=== PATIENT | male | born 1960 | race Caucasian/White ===

== ENCOUNTER 2024-10-01 09:55 | Outpatient (CLI) | payer OTHER, SELFPAY ==
--- NOTE | 2024-10-01 09:58 | CT_ITS ---
WS: [id number] LDCT LUNG CANCER SCREENING HISTORY: NICOTINE DEPENDENCE, CIGARETTES TECHNIQUE: Axial imaging performed from the apices to 1 cm below the costophrenic angles. Coronal and sagittal reformats are submitted with axial MIP series. All CT scans at [facility] use at least one of these dose optimization techniques: automated exposure control; mA and/or kV adjustment per patient size (includes targeted exams where dose is matched to clinical indication); or iterativ e reconstruction. DLP: 72.47 mGy.cm DIvol: Mean CTDIvol: 1.40 (mGy) COMPARISON: None available. Diagnostic quality: Satisfactory Lungs: Mild pulmonary hyperexpansion. No pulmonary nodule or mass. No endobronchial lesions. Heart: Normal size heart with no pericardial effusion.. Other findings: Mild atherosclerosis aorta. Normal size pulmonary artery. Prior CABG. Extensive coron abraham artery calcifications. Prior aortic valve replacement. No adrenal mass. Dense calcification in th e splenic artery. CT/CT lung screening [id number] IMPRESSION: LUNG-RADS: 1-Negative FOLLOW UP: 12 Month: Continue annual screening with LDCT OTHER FINDINGS (S MODIFIER): None.
== END 2024-10-01 09:56 | disposition home or self-care (01) ==
LOC: RAD 09:56
PROVIDERS: PCP Family Medicine; Visit Provider Family Medicine
DX: Z12.2 Encounter for screening for malignant neoplasm of respiratory organs (principal); F17.210 Nicotine dependence, cigarettes, uncomplicated; R91.8 Other nonspecific abnormal finding of lung field; I70.0 Atherosclerosis of aorta; Z98.890 Other specified postprocedural states; I25.10 Atherosclerotic heart disease of native coronary artery without angina pectoris; I70.8 Atherosclerosis of other arteries
CPT/HCPCS: 71271

== ENCOUNTER 2024-11-23 17:21 | Outpatient (CLI) | payer MEDICARE, MEDICAID, SELFPAY ==
--- NOTE | 2024-11-23 17:41 | USR_ITS ---
PROCEDURE INFORMATION: Exam: US Duplex Bilateral Extracranial Arteries; Complete; Carotid Arteries Exam date and time: 11/23/2024 5:48 PM Age: 64 years old Clinical indication: Screening exam; Additional info: Stenosis TECHNIQUE: Imaging protocol: Real-time duplex ultrasound scan of the bilateral extracranial arteries combining mac scale, color Doppler and spectral waveform analysis with image documentation. Complete exam. Exam focused on the carotid arteries. COMPARISON: CT lung screening [id number] 10/01/2024 9:58 AM FINDINGS: Right common carotid artery: No occlusion or stenosis. Waveforms are normal. Right internal carotid artery: No occlusion or stenosis. Waveforms are normal. Right ICA/CCA ratio: Within normal limits. Right external carotid artery: No stenosis in the origin. Right vertebral artery: Unremarkable. Antegrade flow. Left common carotid artery: No occlusion or stenosis. Waveforms are normal. Left internal carotid artery: No occlusion or stenosis. Waveforms are normal. Left ICA/CCA ratio: Within normal limits. Left external carotid artery: No stenosis in the origin. Left vertebral artery: Unremarkable. Antegrade flow. Other findings: Scattered mild atherosclerotic plaque throughout the carotid arterial system. US/CV carotid duplex BI* [id number] IMPRESSION: 1. Negative for significant stenosis of the internal carotid arteries by peak systolic velocity criteria. 2. Scattered mild atherosclerotic plaque throughout the carotid arterial system. REFERENCES: SRU CRITERIA. The degree of internal carotid artery stenosis is based on criteria defined by the Society of Radiologists in Ultrasound (SRU). Normal is no stenosis. Mild is less than 50% stenosis. Moderate is 50-69% stenosis. Severe is greater than 69% stenosis to near occlusion. Near occlusion is a markedly narrowed lumen. Total occlusion is no detectable patent lumen.
== END 2024-11-23 17:22 | disposition home or self-care (01) ==
LOC: RAD 17:26
PROVIDERS: PCP Family Medicine; Visit Provider Family Medicine
DX: I65.23 Occlusion and stenosis of bilateral carotid arteries (principal)
CPT/HCPCS: 93880

== ENCOUNTER → 2024-11-25 14:09 | Outpatient (BNVA) | payer MEDICARE, MEDICAID, SELFPAY | PROVIDERS: PCP Family Medicine; Visit Provider Internal Medicine | DX: R07.9 Chest pain, unspecified (principal); I25.10 Atherosclerotic heart disease of native coronary artery without angina pectoris; Z95.2 Presence of prosthetic heart valve | CPT/HCPCS: 93005; 99204 ==

== ENCOUNTER 2024-12-04 13:36 | Outpatient (CLI) | payer MEDICARE, MEDICAID, SELFPAY ==
--- NOTE | 2024-12-04 13:30 | USR_ITS ---
PROCEDURE INFORMATION: Exam: US Duplex Bilateral Lower Extremity Arteries Exam date and time: 12/04/2024 2:24 PM Age: 64 years old Clinical indication: Pain; Leg, lower; Bilateral; Additional info: Leg pain TECHNIQUE: Imaging protocol: Real-time ultrasound scan of the arteries of the bilateral lower extremities with 2-D mac scale, color Doppler flow and spectral waveform analysis. Images documented and saved. COMPARISON: No relevant prior studies available. FINDINGS: There are monophasic waveforms with loss of the normal early diastolic flow reversal throughout both lower extremities. Right common femoral artery: No occlusion or significant stenosis. Normal waveform. Right superficial femoral artery: No occlusion or significant stenosis. Normal waveform. Right popliteal artery: No occlusion or significant stenosis. Normal waveform. Right calf/foot arteries: No occlusion or significant stenosis in the visualized arteries. Normal waveforms. Dorsalis pedis artery is patent. Left common femoral artery: No occlusion or significant stenosis. Normal waveform. Left superficial femoral artery: No occlusion or significant stenosis. Normal waveform. Left popliteal artery: No occlusion or significant stenosis. Normal waveform. Left calf/foot arteries: No occlusion or significant stenosis in the visualized arteries. Normal waveforms. Dorsalis pedis artery is patent. Right FLORY 0.63 Left FLORY 0.66 US/[place] [id number] IMPRESSION: No stenosis or occlusion. Monophasic waveforms in both legs.
== END 2024-12-04 13:37 | disposition home or self-care (01) ==
PROVIDERS: PCP Family Medicine; Visit Provider Internal Medicine
DX: M79.604 Pain in right leg (principal); M79.605 Pain in left leg
CPT/HCPCS: 93925

== ENCOUNTER 2024-12-29 11:44 | Outpatient (CLI) | payer MEDICARE, MEDICAID, SELFPAY ==
--- NOTE | 2024-12-29 12:00 | USCV_ITS ---
Edvin Hernandez Age: 64 Gender: M : 1960 Exam Date: 12/29/2024 11:55 Ordering Phys: Arnaldo Locke M.D ([email or web address]) Technologist: [place] [facility] [place]: ao mechanical pros BP: / HR: 73 Rhythm: Sinus Technical Quality: Adequate MEASUREMENTS (Male / Female) Normal Values 2D ECHO LV Diastolic Diameter PLAX 3.4 cm 4.2 - 5.9 / 3.9 - 5.3 cm IVS Diastolic Thickness 1.9 cm 0.6 - 1.0 / 0.6 - 0.9 cm IVS Systolic Thickness 2.4 cm LVPW Diastolic Thickness 1.7 cm 0.6 - 1.0 / 0.6 - 0.9 cm LVPW Systolic Thickness 1.8 cm LVOT Diameter 2.1 cm LV Ejection Fraction 2D Teich 60.2 % LV Ejection Fraction MOD 4C 66.9 % LV Ejection Fraction MOD 2C 63.8 % LV Ejection Fraction 2C AL 63.8 % LA Diameter 4.2 cm RA Systolic Volume 4C AL 53.3 ml RA Systolic Volume 4C MOD 52.2 ml Aorta at Sinotubular Diameter 3.0 cm M-MODE LA Ao Ratio MM 1.2 AV Cusp Separation MM 2.0 cm DOPPLER AV Peak Velocity 197.0 cm/s LVOT Peak Velocity 88.0 cm/s AV Area Cont Eq vti 1.8 cm squared AV Area Cont Eq pk 1.6 cm squared MV Peak Velocity 140.0 cm/s MV Area PHT 2.4 cm squared Mitral E to A Ratio 0.9 TV Peak Velocity 224.5 cm/s TR Peak Velocity 241.0 cm/s TR Peak Gradient 23.2 mmHg TV Peak E Velocity 97.0 cm/s PV Peak Velocity 111.0 cm/s FINDINGS Left Ventricle Left ventricle is normal in size. LV systolic function is normal with EF of 60-65%. No regional wall motion abnormalities. Grade 1 diastolic dysfunction Right Ventricle Normal in size and function Right Atrium Normal in size Left Atrium Normal in size Mitral Valve Mild mitral annular calcification. Mild mitral regurgitation. Aortic Valve Mechanical aortic valve. No significant stenosis. Trace aortic regurgitation. Tricuspid Valve Mild tricuspid regurgitation. Insufficient TR jet to calculate RVSP Pulmonic Valve Not well visualized Pericardium Normal Aorta Normal in size IVC Appears to be normal CONCLUSIONS LV systolic function is normal with EF of 60-65% Grade 1 diastolic dysfunction Mild mitral regurgitation Mechanical aortic valve. Trace aortic regurgitation. Mild tricuspid regurgitation No comparison studies are available. Arnaldo Locke MD (Electronically Signed) Final Date: 06 Jan 2025 10:03 S
== END 2024-12-29 11:45 | disposition home or self-care (01) ==
PROVIDERS: PCP Family Medicine; Visit Provider Internal Medicine
DX: R07.9 Chest pain, unspecified (principal); R06.02 Shortness of breath; R93.1 Abnormal findings on diagnostic imaging of heart and coronary circulation; I34.81 Nonrheumatic mitral (valve) annulus calcification; I34.0 Nonrheumatic mitral (valve) insufficiency; Z96.89 Presence of other specified functional implants; I07.1 Rheumatic tricuspid insufficiency
CPT/HCPCS: 93306

== ENCOUNTER 2025-01-20 10:18 | Outpatient (CLI) | payer MEDICARE, MEDICAID, SELFPAY ==
--- NOTE | 2025-01-20 10:00 | CTR_ITS ---
PROCEDURE INFORMATION: Exam: CTA Abdominal Aorta and Bilateral Lower Extremities (Run-off) With Contrast Exam date and time: 01/20/2025 11:10 AM Age: 64 years old Clinical indication: Pain; Other: Lower legs; Prior surgery; Surgery date: 6+ months; Surgery type: Back; Pvd, chronic bilateral leg cramping TECHNIQUE: Imaging protocol: Computed tomographic angiography of the of the abdominal aorta, pelvis and bilateral lower extremities with contrast. 3D rendering (Not supervised by radiologist): MIP and/or 3D reconstructed images were created by the technologist. Radiation optimization: All CT scans at this facility use at least one of these dose optimization techniques: automated exposure control; mA and/or kV adjustment per patient size (includes targeted exams where dose is matched to clinical indication); or iterative reconstruction. Contrast material: OMNIPAQUE 350; Contrast volume: 125 ml; Contrast route: INTRAVENOUS (IV); COMPARISON: CT lung screening [id number] 10/01/2024 9:58 AM RADIATION DOSE METRICS: Total DLP (mGy-cm): 1414.24 FINDINGS: FINDINGS: Aorta: Heavily calcified aorta particularly in the infrarenal aspect. No narrowing. Celiac trunk and mesenteric arteries: Calcification at the origin of the celiac trunk and superior mesenteric arteries. No narrowing. Visceral branches of the celiac trunk normal. Renal arteries: Calcification at the origin of the left renal artery. No narrowing. Calcification at the origin and proximal aspect of the right renal artery. Narrowing proximally of significance likely 60-70%. Inferior mesenteric artery is patent. Right iliac arteries: Dense calcification common iliac artery with neck out narrowing. Atheromatous disease within the proper external iliac artery including a significant narrowing of approximately 80-90% proximally. Right femoral/popliteal arteries: Common femoral artery is heavily calcified and occluded. Distal external iliac artery likely occluded. Profundal artery is patent. Distal superficial femoral artery is reconstituted and heavily calcified. Popliteal artery is calcified and patent. No narrowing. Right infrapopliteal arteries: Calcification within the tibioperoneal trunk and the origin of the infra genicular vessels. Three vessels are patent to the ankle with flow within the dorsalis pedis artery and plantar branches. Left iliac arteries: Dense calcification within the common iliac artery as well as the external iliac artery. No hemodynamically significant narrowing. Left femoral/popliteal arteries: Dense calcification of the common femoral artery. Superficial femoral artery is occluded. Abundant flow within the profundus. Reconstitution of the calcified distal superficial femoral artery. Popliteal artery is calcified and narrowed proximally in excess of 50%. The more distal aspect of the popliteal artery calcification without narrowing. Left infrapopliteal arteries: Calcification within the tibioperoneal trunk and proximal infra genicular vessels. Three-vessel runoff to the ankle with flow within the anterior tibial artery and dorsalis pedis artery as well as the posterior tibial artery in the plantar branches. Liver: Fatty infiltration Gallbladder and biliary ducts: Unremarkable Pancreas: Unremarkable Spleen: Unremarkable Adrenal glands: Unremarkable Kidneys and ureters: Mild scarring lower pole left kidney otherwise unremarkable. Stomach and bowel: Fluid-filled stomach. Diverticulosis. Severe. No acute process. Question mildly thickened small bowel loops in the left mid and upper abdomen. Numerous small nonspecific lymph nodes in the mesentery. Possible enteritis. Appendix: Normal Urinary bladder: Poorly distended. Mass at the base of the bladder possibly prostatic. Bladder mass not excluded. Reproductive: Prominent enlarged prostate gland. BPH versus prostatic mass. Correlate. Intraperitoneal space: No free fluid within the peritoneum. Lymph nodes: Numerous lymph nodes in the mesentery. Possible enteritis. Bones/joints: Surgical plate and pedicle screws L4 and L5.Degenerative changes within the sacroiliac joints. No osteolytic process. No evidence of osteomyelitis. Soft tissues: Small periumbilical ventral hernia. No appreciable edema. No air in the soft tissues. CT/CT angio abd aorta runof [id number] Impression: In brief, occlusion of the superficial femoral arteries bilaterally with reconstitution of the popliteal arteries and three-vessel runoff to the foot bilaterally. See above for detail. Severe narrowing of the right external iliac artery likely 80-90%. See image number 246 series 5. Occlusion of the distal aspect of the right iliac artery and the right common femoral artery. Significant narrowing of the proximal aspect of the right renal artery. Narrowing of the proximal popliteal artery on the left in excess of 50%. Numerous small lymph nodes in the mesentery. Possible enteritis. Enlarged prostate. Mass base of the bladder. See above. No evidence of osteomyelitis
[2025-01-20 11:06] LABS: Blood Urea Nitrogen 17 mg/dL (8-23); Glomerular Filtration Rate 60.8 mL/min (90-130)
[2025-01-20] MEDS: iohexol 350 mg/mL 500 mL Btl (per mL) IV (11:23)
== END 2025-01-20 10:19 | disposition home or self-care (01) ==
PROVIDERS: PCP Family Medicine; Visit Provider Internal Medicine
DX: I70.202 Unspecified atherosclerosis of native arteries of extremities, left leg (principal); I70.291 Other atherosclerosis of native arteries of extremities, right leg; R93.89 Abnormal findings on diagnostic imaging of other specified body structures; I70.8 Atherosclerosis of other arteries; I77.1 Stricture of artery; R59.0 Localized enlarged lymph nodes; N40.0 Benign prostatic hyperplasia without lower urinary tract symptoms; N32.89 Other specified disorders of bladder; K55.1 Chronic vascular disorders of intestine; I70.1 Atherosclerosis of renal artery; K76.0 Fatty (change of) liver, not elsewhere classified; N28.89 Other specified disorders of kidney and ureter; K57.30 Diverticulosis of large intestine without perforation or abscess without bleeding; Z98.890 Other specified postprocedural states; M46.1 Sacroiliitis, not elsewhere classified; K43.9 Ventral hernia without obstruction or gangrene
CPT/HCPCS: 75635; 82565; 84520

== ENCOUNTER 2025-02-10 07:25 | Outpatient (CLI) | payer MEDICARE, MEDICAID, SELFPAY ==
[2025-02-10] VITALS (7 sets, daily range): BP systolic 106–140; BP diastolic 60–82; PULSE 41–58; RESP 14–20; TEMP 36.2–36.5; O2SAT 92–98; BMI 28.1
--- NOTE | 2025-02-10 07:30 | XACV_ITS ---
Wt: 72 kg BSA: 1.81 m2 Any Known Allergies: Other Gender: Male : 1960 Exam Type: Invasive Peripheral Vascular Procedure(s): Procedure Description: Diagnostic procedure Procedure Description: Peripheral Cath Diagnostic Procedure Procedure Description: Abdominal aortic angiography Procedure Description: Lower extremities' angiography Exam Priority: Routine Abdominal Diagnostic Findings Distal abdominal aorta is patent. Lower Extremity Diagnostic Findings INDICATION: 64-year-old man with past medical history of coronary artery disease status post CABG, mechanical aortic valve who has been having severe lifestyle limiting claudication of bilateral lower extremities. Has been on cilostazol with no significant improvement in symptoms. CTA demonstrates severe bilateral PAD. Plan for peripheral angiogram with possible intervention. Right lower extremity findings: Right common iliac artery is patent. Right internal iliac artery is patent. Right external iliac artery is totally occluded in distal segment. Right common femoral artery is totally occluded. Reconstitution of profunda artery via collaterals. Right SFA is reconstituted in mid to distal vessel via collaterals. Right popliteal artery is patent. Below the knee patient has good three-vessel runoff to foot.. Left lower extremity findings: Left common iliac artery is patent. Left internal iliac artery is patent. Left external iliac artery is patent. Left common femoral artery has mild to moderate disease. Left profunda artery is patent. Left SFA is totally occluded at the ostium and reconstituted in mid to distal vessel. Left popliteal artery is patent. Below the knee patient has 2-3 vessel runoff.. Conclusions Severe bilateral peripheral artery disease including totally occluded right external iliac and common femoral artery. We will refer patient to vascular surgery revascularization attempt. Recommendations Aggressive risk factor modification. Referral to vascular surgery team. Hemodynamic Data Phase:Rest AO : 99.0 / 52.0 ( 72.0 ) @ 9:55:00 AM Access Site Site: Left Femoral artery Sheath Size: 6 Fr Hemost... Method: Mynx Hemost... Success: Successful Procedure Details Findings Procedure Consent Obtained. Admit Source: Out Patient. Pre-Procedure Time Out. Identified patient by full name and date of as verbalized by the patient/guarantor. Does the consent match the physician's order: Yes. Accurate & Complete Informed Consent: Yes. Inpatient/Outpatient History & Physical on Chart: Yes. If H&P is completed, is and addenduem needed: No; If yes, is the addendum complete: N/A. Visualize and Verify Site with Patient/Guarantor: N/A. Relevant Radiology Images available: N/A. The risks, benefits, and alternatives of sedation and/or procedure were discussed by physician. The patient agrees to continue. Procedure started. Current diagnosis: Severe Claudication. IV Site on Arrival: 20 gauge in the right anticubital. IV Fluids: 0.9% NaCl at KVO. 0 mL infused prior to research laboratory specialist. Pre Procedural Pulses: bilateral posterior tibial was Doppled. Pre Procedural Pulses: bilateral dorsalis pedis was Doppled. Pre Procedural Pulses: bilateral radial was 1+. Oxygen started at 3liters/min via nasal canula. bilateral groins was prepped with chloroprep then draped in the usual sterile fashion. Physician notified. Baseline sample Acquired. HR: 52 BPM. Family updated by MD prior to the start of the procedure. Physician arrived. Physician scrubbed in. Immediate Pre-Procedure Time Out. Correct Patient: Yes; Correct Procedure: Yes; Correct Site: Yes; Correct Patient Position: Yes; Correct Supplies: Yes; Dried Flammable Prep: Yes; Blood Products Available: N/A;. Lidocaine 1% infiltrated to the left groin. Arterial access obtained. A 5FrFr UF catheter in over wire. Abdominal aortogram performed in AP @ 10 mL/sec for a total of 30 mL. Glidewire inserted. UF catheter advanced over the glide into the right Common Iliac artery then glidewire removed. Right common iliac selected and arteriogram performed at 10 ml/sec for a total of 20 ml. Glidewire inserted. UF catheter removed. Rim inserted over the glidewire. RIM catheter out. UF reinserted. Glidewire out. Pigtail postioned above the bifurcation of the iliacs. Digital Subtraction Aortagram performed @ 10 mL/sec for a total of 20 mL. Right tibial peroneal trunk selected and Digital Subtraction arteriogram performed @ 10 mL/sec for a total of 30 mL. UF catheter removed over the wire. Left common femoral selected and arteriogram with runoff performed @ 10 mL/sec for a total of 30 mL. Physician review of films. Arterial sheath flushed and connected to tranducer and pressure bag with heparinized saline. Post Procedure: Pulses reassessed and unchanged. PERRLA. Strong, equal hand systems design engineer bilaterally. No VTE prophylaxis required. Medication's Wasted: Lidocaine 1% = 10 ml, Heparin = 1000 units, Fentanyl = 50 mcg. Total IV fluids: 45 mL. A Mynx was successful obtaining hemostatsis at the Left Femoral artery insertion site. Mynx placed without complications. No signs or symptoms of hematoma noted. Sterile dressing applied per usual sterile fashion. lot # [id number] EXP . Physician scrubbed out. Fluoro: 9:05. Contrast type used: Visipaque 320 mgI/mL, 200 mL bottle. [id number]. Post-op diagnosis: SEVERE CLAUDICATION. Complications: None. Estimated blood loss: 5mL-10mL. Responsiveness - Normal response to verbal stimuli; alert and oriented, PERRLA. Airway - Unaffected, no intervention required; spontaneous ventilation. Circulation: W/N/L, pulses unchanged. Nausea/Vomiting: No. Procedure completed. Patient transferred by bed to 1st floor. Vital chart was stopped. Procedure Medications Start: 8:34 AM Stop: 8:34 AM Medication: Versed Amount: 1 mg Route: I.V. Start: 8:34 AM Stop: 8:34 AM Medication: Fentanyl Amount: 50 mcg Route: I.V. Start: 8:40 AM Stop: 8:40 AM Medication: Versed Amount: 1 mg Route: I.V. I, the attending physician, have reviewed and verified all procedure medications. Yes, all medications given per verbal order History/Risk Factors Hypertension: No Dyslipidemia: Yes Peripheral Arterial Disease (PAD): Yes Obesity: No Renal Disease: No Tobacco Use: Former Prior Interventions PCI: No CABG: No Valve Surgery: No Report Signatures Finalized by Arnaldo Locke MD on 02/13/2025 01:41 PM
[2025-02-10 07:48] LABS: Basophils # 0.1 10^3/uL (0.0-0.1); Basophils % 0.7 %; Eosinophils # 0.2 10^3/uL (0.0-0.8); Eosinophils % 2.7 %; Hematocrit 44.6 % (37-53); Lymphocytes # 1.2 10^3/uL (0.8-4.8); Lymphocytes % 15.8 %; Mean Corpuscular HGB Conc 33.6 g/dL (30-55); Mean Corpuscular Hemoglobin 32.1 pg (27-33); Mean Corpuscular Volume 95.5 fl (82-101); Mean Platelet Volume 12.5 fL (7.4-10.4); Monocytes # 0.6 10^3/uL (0.2-0.9); Monocytes % 8.2 %; Neutrophils # 5.25 10^3/uL (1.8-7.7); Neutrophils % 72.1 %; Nucleated Red Blood Cells % 0 %; Platelet Count 129 10^3/cmm (157-399); Red Blood Count 4.67 10^6/uL (3.85-5.65); Red Cell Distribution Width 14.8 % (12.1-15.1); White Blood Count 7.29 10^3/uL (3.29-11.43)
[2025-02-10] MEDS: aspirin 325 mg Tablet PO (07:51)
[2025-02-10] MEDS: diphenhydrAMINE 50 mg Capsule PO (07:51)
[2025-02-10 08:06] LABS: Anion Gap 12.6 (5-19); Blood Urea Nitrogen 16 mg/dL (8-23); Carbon Dioxide 25 mmol/L (22-29); Chloride 107 mmol/L (98-107); Creatinine Clr Calc Pharmacy 59.6481; Glomerular Filtration Rate 67.2 mL/min (90-130); Glucose 88 mg/dL (65-115); Osmolality Calculated 293 mOsm/kg (285-295); Potassium 3.6 mmol/L (3.5-5.1); Sodium 141 mmol/L (136-145)
--- NOTE | 2025-02-10 08:27 | W.PM.OPSFHP ---
Same Day Surgery H&P Indication for Procedure/HPI DATE OF PROCEDURE: February 10, 2025 CHIEF COMPLAINT/INDICATIONFOR SURGICAL PROCEDURE: Severe lifestyle limiting claudication PREOP DIAGNOSIS: Severe lifestyle limiting claudication PLANNED PROCEDURE: Operation Date: 02/10/25 08:30 Proposed Procedures p Peripheral Diagnostic - Periph Angio Bilat(Bilateral) - Arnaldo Locke M.D Possible intervention 64-year-old man with past medical history of coronary artery disease status post CABG, mechanical aortic valve who has been having severe lifestyle limiting claudication of bilateral lower extremities. Has been on cilostazol with no significant improvement in symptoms. CTA demonstrates severe bilateral PAD. Plan for peripheral angiogram with possible intervention Medications/Allergies* Home Medications ?Medication ?Instructions ?Recorded ?Confirmed ?Type amlodipine 10 mg tablet 10 mg PO DAILY 11/25/24 02/10/25 History clonazepam 0.5 mg tablet (Klonopin) 0.5 mg PO BID 11/25/24 02/10/25 History ergocalciferol (vitamin D2) 1,250 1,250 mcg PO DAILY 11/25/24 02/09/25 History mcg (50,000 unit) capsule (Vitamin D2) fluticasone propionate 50 2 spray intranasal BID 11/25/24 02/10/25 History mcg/actuation nasal spray,suspension (Flonase Allergy Relief) losartan 100 mg tablet 100 mg PO DAILY 11/25/24 02/10/25 History sertraline 150 mg capsule 150 mg PO BID 11/25/24 02/10/25 History warfarin 2.5 mg tablet 2.5 mg PO DAILY 11/25/24 02/10/25 History warfarin 5 mg tablet 5 mg PO DAILY 11/25/24 02/10/25 History Allergies/Adverse Reactions Allergy/AdvReac Type Severity Reaction Status Date / Time codeine Allergy Unknown Unknown Verified 11/25/24 14:20 gabapentin (From Neurontin) Allergy Unknown Unknown Verified 11/25/24 14:20 Current Medications: Generic Name Dose Route Start Last Admin Trade Name Freq PRN Reason Stop Dose Admin Sodium Chloride 1,000 mls @ 50 mls/hr 02/10/25 07:30 02/10/25 07:51 Sodium Chloride 0.9% IV 02/11/25 03:29 Not Given .Q20H ONE Pertinent History/Comorbid Conditions* Social History Smoking and tobacco/nicotine status: current every day tobacco/nicotine user Pertinent Exam Findings alert, oriented x 3, clear to auscultation bilaterally and regular rate & rhythm Conscious Sedation Assessment PATIENT ASSESSED PRIOR TO SEDATION, WITH NO CHANGE NOTED: Yes AIRWAY EVAL/ANESTHESIA PLAN: normal airway, ASA III, Local Anesthesia, Risks, benefits & alternatives of sedation and/or procedure discussed and Patient agrees to continue as planned ADDITIONAL INFORMATION: Moderate sedation Recommendations Risks and benefits of procedure reviewed and Patient/family agree to proceed Surgery/Procedure today (Peripheral angiogram with possible intervention) Coding Level of Care Code Acute Code for Chg Fwsergio
[2025-02-10 12:50] LABS: INR 1.02 (0.8-1.2)
--- NOTE | 2025-02-10 12:59 | P.PCN_ITS ---
Procedure Note: Date of procedure: 02/10/25 Pre-procedure diagnosis: Severe bilateral claudication of lower extremities Post-procedure diagnosis: other Procedure: Total occlusion of right distal external iliac artery into common femoral ar shoshana. Reconstitution of SFA/Profunda artery via collaterals. Totally occluded left SFA. Will refer to vascular surgery for further evaluation. Common femoral artery is occluded. Estimated blood loss (mL): 5 Complications: None Condition: stable Disposition: same day Coding Level of Care Code Acute Code for Malu Dutta
--- NOTE | 2025-02-10 14:50 | PM.SDS ---
Short Stay Summary Providers Date of Admit/Discharge: 02/10/25 Attending Provider: Arnaldo Locke M.D Primary Care Provider: Donnie White MD Chief Complaint: I73.9 HPI History of Present Illness Edvin Hernandez is a 64 year old male with hx of PAD. Peripheral angiogram was done today that showed total occlusion of right external iliac into the common femoral. Totally occlusded SFA. Patient did well and groin site was without complications after. Due to hx of aortic valve placement will need to be bridged with lovenox. Instructions given to patient. Will see us in 1 week and need referral to vascular surgery for further evaluation and treatment. Review of Systems Narrative: Consitutional: denies fever, chills, body aches, or changes in appetite, denies abnormal weight loss Eyes: Denies changes in vision Card: Denies chest pain, palpitations, irregular heart rhythm, edema, syncope, shortness of breath, orthopnea, leg pain with exertion Resp: Denies shortness of breath, denies hemoptysis, denies cough GI: denies abdominal pain, denies nausea or voimting, denies blood in stool : denies blood in urine, denies dysuria Musc: Denies extremity pain, denies limited range of motion or recent injury Skin: Denies rash, lesions, or wounds, denies changes to skin color Neuro: Denies nubmness in extremities, h/a, s/s of stroke Jimi: Denies easy bruiding/bleeding Home Meds/Allergies Home Medications and Allergies Home Medications ?Medication ?Instructions ?Recorded ?Confirmed ?Type amlodipine 10 mg tablet 10 mg PO DAILY 11/25/24 02/10/25 History clonazepam 0.5 mg tablet (Klonopin) 0.5 mg PO BID 11/25/24 02/10/25 History ergocalciferol (vitamin D2) 1,250 1,250 mcg PO DAILY 11/25/24 02/09/25 History mcg (50,000 unit) capsule (Vitamin D2) fluticasone propionate 50 2 spray intranasal BID 11/25/24 02/10/25 History mcg/actuation nasal spray,suspension (Flonase Allergy Relief) losartan 100 mg tablet 100 mg PO DAILY 11/25/24 02/10/25 History sertraline 150 mg capsule 150 mg PO BID 11/25/24 02/10/25 History warfarin 2.5 mg tablet 2.5 mg PO DAILY 11/25/24 02/10/25 History warfarin 5 mg tablet 5 mg PO DAILY 11/25/24 02/10/25 History Allergies Allergy/AdvReac Type Severity Reaction Status Date / Time codeine Allergy Unknown Unknown Verified 11/25/24 14:20 gabapentin (From Neurontin) Allergy Unknown Unknown Verified 11/25/24 14:20 PFSH Acute PFSH: Social History Smoking and tobacco/nicotine status: current every day tobacco/nicotine user Vitals/I&O/Wt Last Vital Signs Temp 97.4 F L 02/10/25 14:40 Pulse 52 L 02/10/25 14:40 Resp 16 02/10/25 14:40 BP 108/65 02/10/25 14:40 Pulse Ox 98 02/10/25 14:40 O2 Del Method Room Air 02/10/25 12:33 02/09/25 02/10/25 02/10/25 22:59 06:59 14:59 Intake Total 480 / 480 Balance 480 / 480 Weight last 48 hrs Weight 159 lb Physical Exam Narrative: General: No apparent distress, healthy appearing, well nourished HENMT: normoceophalic Respiratory: Normal respiratory effort, clear to auscultation bilaterally throughout all lung gottlieb, no use of accessory muscles Cardio: No JVD, regular rate, regular rhythm, S1 S2 normal, no murmurs, peripheral pulses 2+ radial palpated bilaterally, bilateral lower extremities warm with 2 second capillary refill Extremities: Full ROM, normal, normal capillary refill, no cyanosis or edema Neuro: Alert and oriented x4, no focal motor deficits Psych: Affect normal, denies suicidal ideation, mental status grossly normal Skin: left fem stick site clean, dry, intact w/o hematoma, soft no bleeding Hospital Course Hospital Course As stated below Discharge Summary Edvin Hernandez is a 64 year old male with hx of PAD. Peripheral angiogram was done today that showed total occlusion of right external iliac into the common femoral. Totally occlusded SFA. Patient did well and groin site was without complications after. Due to hx of aortic valve placement will need to be bridged with lovenox. Instructions given to patient. Will see us in 1 week and need referral to vascular surgery for further evaluation and treatment. Patient will get PT/INR saturday for reevaluation of INR. SSS Data Data Completed and Pending: Pending at discharge Category Date Time Status TAX APPRAISER request for service Routin e Exams 02/10/25 07:30 Taken Procedures Performed: Date of procedure: 02/10/25 Pre-procedure diagnosis: Severe bilateral claudication of lower extremities Post-procedure diagnosis: other Procedure: Total occlusion of right distal external iliac artery into common femoral artery. Reconstitution of SFA/Profunda artery via collaterals. Totally occluded left SFA. Will refer to vascular surgery for further evaluation. Common femoral artery is occluded. Estimated blood loss (mL): 5 Complications: None Condition: stable Disposition: same day Discharge Plan Discharge Patient Disposition: Home Prescriptions: New enoxaparin [Lovenox] 80 mg/0.8 mL syringe 80 mg SUBCUT Q12H Qty: 4.8 0RF Rx Instructions: Start on 02/11/2025, last dose saturday night Continued amlodipine 10 mg tablet 10 mg PO DAILY warfarin 2.5 mg tablet 2.5 mg PO DAILY warfarin 5 mg tablet 5 mg PO DAILY losartan 100 mg tablet 100 mg PO DAILY sertraline 150 mg capsule 150 mg PO BID clonazepam [Klonopin] 0.5 mg tablet 0.5 mg PO BID ergocalciferol (vitamin D2) [Vitamin D2] 1,250 mcg (50,000 unit) capsule 1,250 mcg PO DAILY fluticasone propionate [Flonase Allergy Relief] 50 mcg/actuation spray,suspension 2 spray intranasal BID Rx Instructions: administer into each nostril atorvastatin [Lipitor] 40 mg tablet 40 mg PO DAILY Qty: 90 3RF cilostazol 50 mg tablet 50 mg PO BID Qty: 180 3RF Discontinued enoxaparin [Lovenox] 80 mg/0.8 mL syringe 80 mg SUBCUT Q12H Qty: 3.2 0RF Rx Instructions: 02/08/25 one injection AM & PM 02/09/25 one injection AM & PM Discharge Orders: Discharge Order (Routine); Ordered 02/10/25 Ordered By: Rosalinda Locke Other Ambulatory Orders: Prothrombin Time INR (Routine) Timeframe: 20250215 Facility: [facility] - Location: Lab - Main Lab Ordered By: Rosalinda Locke Referrals: Donnie White MD [Primary Care Provider, Family Practice] - 02/16/25 1:30 pm Ruma De La Paz FNP [Nurse Practitioner, Cardiology] - 02/22/25 2:30 pm Diet: Low Cholesterol and Low Fat Activity: Increase activity as tolerated and Limit activity as instructed Patient Instructions: Enoxaparin (By injection), Peripheral Vascular Angioplasty (DC) Activity Restrictions/Additional Instructions: Discussed with patient no heavy lifting more than a gallon of milk as well as going up or down steps for 3 days. No driving for 3 days. Monitor for and report signs or symptoms of bleeding. Monitor for and report s/s of infection such as fever 101 or greater, swelling, redness or pain to the groin. Print Language: [place] Islander Attestations Medical Necessity Statement*: Patient stay not crossing 2 midnights Time Spent in Patient Care*: less than 30 min Quality Metrics Clinical Quality Measures: [ No reported AMI, CVA or VTE this stay] Coding Level of Care Code Acute Code for Chg Fwd
== END 2025-02-10 15:45 | disposition home or self-care (01) ==
LOC: CCL 07:25 → CSU 12:16
PROVIDERS: Nurse Practitioner Family; PCP Family Medicine; Visit Provider Internal Medicine
DX: I73.9 Peripheral vascular disease, unspecified (principal); I70.92 Chronic total occlusion of artery of the extremities; E78.5 Hyperlipidemia, unspecified; F17.200 Nicotine dependence, unspecified, uncomplicated; I25.10 Atherosclerotic heart disease of native coronary artery without angina pectoris; Z95.1 Presence of aortocoronary bypass graft
CPT/HCPCS: 36415; 75625; 75716; 80048; 85025; 85610; 99152; 99153; C1760; C1769; C1887; C1894; G0269; J1644; J2250; J3010; J7030; J9999; Q0163; Q9967

== ENCOUNTER → 2025-02-22 14:40 | Outpatient (BNVA) | payer MEDICARE, MEDICAID, SELFPAY | PROVIDERS: PCP Family Medicine; Visit Provider Nurse Practitioner Family | DX: I73.9 Peripheral vascular disease, unspecified (principal); I25.10 Atherosclerotic heart disease of native coronary artery without angina pectoris; Z87.891 Personal history of nicotine dependence; Z79.01 Long term (current) use of anticoagulants | CPT/HCPCS: 36415; 80048; 99214 ==

== ENCOUNTER 2025-02-25 14:05 | Outpatient (CLI) | payer MEDICARE, MEDICAID, SELFPAY | END 2025-02-25 14:06 | disposition home or self-care (01) | LOC: RAD 02-26 07:36 | PROVIDERS: PCP Family Medicine; Visit Provider Surgery | DX: Z12.11 Encounter for screening for malignant neoplasm of colon (principal) | CPT/HCPCS: 99024; 99204 ==

== ENCOUNTER → 2025-03-10 10:39 | Outpatient (BNVA) | payer MEDICARE, MEDICAID, SELFPAY | PROVIDERS: PCP Family Medicine; Visit Provider Family Medicine | DX: I48.91 Unspecified atrial fibrillation (principal) | CPT/HCPCS: 85610 ==

== ENCOUNTER 2025-03-18 06:44 | Day surgery (SDC) | payer MEDICARE, MEDICAID, SELFPAY ==
[2025-03-18 07:03] VITALS: BMI 27.4
[2025-03-18 07:12] VITALS: BP 120/77; PULSE 66; RESP 16; TEMP 36.1; O2SAT 96
--- NOTE | 2025-03-18 07:23 | P.HPUD_ITS ---
Surgery/Procedure H&P Update DATE OF PROCEDURE: March 18, 2025 DATE H&P PERFORMED: 02/25/25 H&P UPDATE INFORMATION: I have reviewed H&P completed within last 30 days, I have examined patient prior to procedure, No changes to prior documentation, H&P is in [facility] EMR on date indicated and Risks and benefits of the procedure reviewed PLANNED PROCEDURE: Operation Date: 03/18/25 08:20 Proposed Procedures p Colonoscopy [id number] G0105 Z12.11(Not Applicable) - Cristopher Shafer MD
--- NOTE | 2025-03-18 07:29 | ANES.PREANE2 ---
Pre-Anesthetic Assessment Height/Weight: Height 1.63 m Weight 72.575 kg Temp Pulse Resp BP Pulse Ox O2 Del Method 97.0 F L 66 16 120/77 96 Room Air 03/18/25 07:12 03/18/25 07:12 03/18/25 07:12 03/18/25 07:12 03/18/25 07:12 03/18/25 07:12 Preop Diagnosis: screening Operation Date: 03/18/25 08:20 Proposed Procedures p Colonoscopy [id number] Z12.11(Not Applicable) - Cristopher Shafer MD Last intake: Intake Last Liquid Date 03/17/25 Last Liquid Time 20:00 Last Solid Date 03/16/25 Last Solid Time 18:00 Exam alert, oriented x 3, clear to auscultation bilaterally and regular rate & rhythm Airway Submandibular: within normal limits Cervical ROM: within normal limits Mallampati: Class II Dentition: chipped Comments: Comments: TMD<3, FROM Pulmonary Asthma rescue inhalers 1-2/week CV/HEM Coronary Artery Disease AVR None reported Hepatic None reported GI None reported Musc/skel Weakness r/t PVD/PAD Neuropsych None reported Anesthetic Plan ASA status: 3 Anesthesia: MAC Risk of > 500 ml blood loss (7ml/kg in children): No Medications/Allergies Home Medications ?Medication ?Instructions ?Recorded ?Confirmed ?Last Taken ?Type amlodipine 10 mg tablet 10 mg PO DAILY 11/25/24 03/15/25 03/14/25 History clonazepam 0.5 mg tablet (Klonopin) 0.5 mg PO BID 11/25/24 03/15/25 03/14/25 History ergocalciferol (vitamin D2) 1,250 1,250 mcg PO .WEEKLY 11/25/24 03/15/25 03/08/25 History mcg (50,000 unit) capsule (Vitamin D2) fluticasone propionate 50 2 spray intranasal BID 11/25/24 03/15/25 03/14/25 History mcg/actuation nasal spray,suspension (Flonase Allergy Relief) losartan 100 mg tablet 100 mg PO DAILY 11/25/24 03/15/25 03/14/25 History sertraline 150 mg capsule 150 mg PO BID 11/25/24 03/15/25 03/14/25 History cilostazol 50 mg tablet 50 mg PO BID #180 tabs 12/21/24 03/15/25 03/14/25 Rx albuterol sulfate 90 mcg/actuation 2 inh inhalation Q6H PRN Shortness 02/22/25 03/15/25 03/14/25 History breath activated powder inhaler Of Breath atorvastatin 80 mg tablet (Lipitor) 80 mg PO DAILY 02/22/25 03/15/25 03/14/25 History budesonide 0.5 mg/2 mL suspension 0.25 mg inhalation BID 02/22/25 03/15/25 03/13/25 History for nebulization (Pulmicort) dupilumab 200 mg/1.14 mL 200 mg SUBCUT .[id number] 02/22/25 03/15/25 03/08/25 History subcutaneous pen injector (Dupixent) warfarin 3 mg tablet 3 mg PO .MON-Sat02/25/25 03/15/25 03/12/25 History Held on 03/12/25. Instructions: Doctor's Order warfarin 4 mg tablet 4 mg PO .SAT-SUN 02/25/25 03/15/25 03/12/25 History Held on 03/12/25. Instructions: Doctor's Order enoxaparin 80 mg/0.8 mL 80 mg (0.8 mL) SUBCUT Q12H #8 mL 03/12/25 03/15/25 03/14/25 Rx subcutaneous syringe (Lovenox) Allergies Allergy/AdvReac Type Severity Reaction Status Date / Time codeine Allergy Unknown Unknown Verified 03/15/25 08:19 gabapentin (From Neurontin) Allergy Unknown Unknown Verified 03/15/25 08:19 Current Medications Generic Name Dose Route Start Last Admin Trade Name Freq PRN Reason Stop Dose Admin Sodium Chloride 1,000 mls @ 15 mls/hr 03/18/25 07:08 03/18/25 07:09 Sodium Chloride 0.9% IV 03/19/25 07:07 15 mls/hr .Q24H PRN Administration COLONOSCOPY FLUIDS PFSH Anesthesia Social History Smoking and tobacco/nicotine status: never used tobacco/nicotine Data Anesthesia Cardiac Studies: Echocardiogram 12/29/24
[2025-03-18 08:40] VITALS: BP 96/62; PULSE 72; RESP 18; TEMP 36.3; O2SAT 99
[2025-03-18 08:56] VITALS: BP 106/84; PULSE 74; RESP 18; TEMP 36.2; O2SAT 98
--- NOTE | 2025-03-18 09:16 | ANE.PACU2 ---
Inpatient post-anesthesia follow up: Airway intact: Yes Vital signs: Temperature 97.2 F Pulse Rate 74 Respiratory Rate 18 Blood Pressure 106/84 Pulse Oximetry 98 Oxygen Delivery Me thod Room Air Oxygen Flow Rate Fraction of Inspir ed Oxygen Hydration adequate: Yes Nausea and vomiting: No Pain level: 1 Mental status: Baseline
== END 2025-03-18 09:16 | disposition home or self-care (01) ==
PROVIDERS: PCP Family Medicine; Visit Provider Surgery
PROC: 0DJD8ZZ Inspection of Lower Intestinal Tract, Via Natural or Artificial Opening Endoscopic (ICD-10-PCS; CPT 45378; principal; 2025-03-18 08:20)
DX: Z12.11 Encounter for screening for malignant neoplasm of colon (principal); K63.5 Polyp of colon; K57.30 Diverticulosis of large intestine without perforation or abscess without bleeding; K64.8 Other hemorrhoids; I25.10 Atherosclerotic heart disease of native coronary artery without angina pectoris; Z79.01 Long term (current) use of anticoagulants; Z87.891 Personal history of nicotine dependence
CPT/HCPCS: 45385; 88305; J2704; J3490; J7030; J9999

== ENCOUNTER → 2025-03-30 07:57 | Outpatient (BNVA) | payer MEDICARE, MEDICAID, SELFPAY | PROVIDERS: PCP Family Medicine; Visit Provider Surgery | DX: Z09 Encounter for follow-up examination after completed treatment for conditions other than malignant neoplasm (principal) | CPT/HCPCS: 99213 ==

== ENCOUNTER → 2025-06-01 13:25 | Outpatient (BNVA) | payer MEDICARE, MEDICAID, SELFPAY | PROVIDERS: PCP Family Medicine; Visit Provider Internal Medicine | DX: I25.10 Atherosclerotic heart disease of native coronary artery without angina pectoris (principal); I73.9 Peripheral vascular disease, unspecified; Z95.2 Presence of prosthetic heart valve; Z79.01 Long term (current) use of anticoagulants | CPT/HCPCS: 99214 ==